=== PATIENT | male | born 1990 | race Caucasian/White ===

== ENCOUNTER 2021-03-21 17:43 | Emergency (ER) | payer MEDICAID, OTHER ==
[~2021-03-21] VITALS: Ht 180.3 cm; Wt 63.6 kg
[2021-03-21] MEDS ORDERED: ibuprofen tablet 400 MG TABLET PO ONE (18:20)
--- NOTE | 2021-03-22 09:59 | NUR ---
pt had taken his own motrin from home
[2021-03-22] MEDS ORDERED: propofol 10mg/ml 20ml vial IV ONE (10:05)
--- NOTE | 2021-03-22 10:30 | NUR ---
pt npo since 199 this am
--- NOTE | 2021-03-22 11:29 | NUR ---
1105 dr. ochoa at bedside. pt going to or.
[2021-03-22 12:12] LABS: ANION GAP 10 (8-16); BLOOD UREA NITROGEN 16 MG/DL (7-18); BUN/CREATININE RATIO 24.2 (5.4-32.0); CALCIUM 8.2 MG/DL (8.5-10.1); CHLORIDE 108 MMOL/L (99-107); CREATININE 0.66 MG/DL (0.60-1.10); GLUCOSE 99 MG/DL (70-104); POTASSIUM 4.2 MMOL/L (3.5-5.1); SODIUM 142 MMOL/L (135-145); TOTAL CARBON DIOXIDE 24.1 MMOL/L (24-32); eGFR > 90 ML/MIN
[2021-03-22 12:18] LABS: BASOPHILS % (AUTO) 0.3 % (0-1); EOSINOPHILS # (AUTO) 0.1 X10'3 (0-0.9); EOSINOPHILS % (AUTO) 1.2 % (0-6); HEMATOCRIT 38.9 % (42.0-52.0); HEMOGLOBIN 13.2 g/dl (14.0-17.9); LYMPHOCYTES # (AUTO) 1.2 X10'3 (1.1-4.8); LYMPHOCYTES % (AUTO) 11.6 % (21-51); MEAN CORPUSCULAR HEMOGLOBIN 29.3 PG (27.0-31.0); MEAN CORPUSCULAR VOLUME 86.2 FL (78-98); MONOCYTES % (AUTO) 9.5 % (2-12); NEUTROPHILS % (AUTO) 77.4 % (42-75); PLATELET COUNT 185 X10'3 (140-440); RED BLOOD COUNT 4.51 X10'6 (4.70-6.10); RED CELL DISTRIBUTION WIDTH 13.4 % (11.5-14.5); WHITE BLOOD COUNT 10.3 X10'3 (4.5-11.0)
[2021-03-22] MEDS ORDERED: cloNIDine hcl/PF 100mcg/ml inj ONE (13:12)
[2021-03-22] MEDS ORDERED: fentaNYL/PF 50MCG/1 ML 2ML syringe ONE (13:14)
[2021-03-22] MEDS ORDERED: propofol inj 20 ML IV ONE (13:14)
[2021-03-22] MEDS ORDERED: midazolam 1 mg/ML 2ml injection ONE (13:14)
[2021-03-22] MEDS ORDERED: ROPIVAcaine 0.5% (5mg/ml) 30ml vial ONE (13:17)
[2021-03-22] MEDS ORDERED: sevoflurane 250ml liquid IH ONE (13:18)
[2021-03-22] MEDS ORDERED: ceFAZolin 1000mg inj ONE ×2 (13:33→13:34)
[2021-03-22] MEDS ORDERED: morphine 2 MG/ML inj. syringe IV PRN (14:05)
[2021-03-22] MEDS ORDERED: ringers solution, lacted 1,000 ML IV SCH (14:05)
[2021-03-22] MEDS ORDERED: morphine 4 MG/ML inj SYRINge IV PRN (14:05)
[2021-03-22] MEDS ORDERED: meperidine/PF 25mg/ml syringe IV PRN ×3 (14:05)
[2021-03-22] MEDS ORDERED: proCHLORperazine 10 MG/2 ml inj IV PRN (14:05)
[2021-03-22] MEDS ORDERED: ondansetron/PF 4mg/2ml inj IV PRN (14:05)
[2021-03-22] MEDS ORDERED: vancomycin 1,000mg inj ONE (14:57)
[2021-03-22] MEDS ORDERED: bacitracin 15gm ointment TP ONE (15:14)
[2021-03-22 15:35] VITALS: BP 130/84
--- NOTE | 2021-03-22 15:35 | NUR ---
Received from OR via [facility], accompanied by Anesthesiologist BRET and report given by Anesthesiologist. PATIENT WAKING UP, NO S/S OF PAIN, V/S WNL, C AND M INTACT BILATERALLY, RIGHT ARM CASTED AND WRAPPED IN ER S/P FALL HAS 20G PIV IN PLACE, LEFT ARM SPLINTED AND WRAPPED-CDI, INTRACLAVICULAR BLOCK DONE TO LEFT-ARM IN SLING, C AND M INTACT +CAP REFILL, PT ABLE TO MOVE FINGERS BUT NO SENSATION, SCD ON, 20G TO LUE, RIGHT WRIST DRESSING CDI W/ SLING. ICE AND ELEVATED RUE.
[2021-03-22 15:40] VITALS: BP 134/90
[2021-03-22 15:50] VITALS: BP 137/85
[2021-03-22 16:00] VITALS: BP 129/90
[2021-03-22 16:10] VITALS: BP 132/86
[2021-03-22 16:20] VITALS: BP 135/87
--- NOTE | 2021-03-22 16:35 | NUR ---
PATIENT A&OX4, DENIES PAIN, V/S STABLE, SCD OFF, 20G TO LUE D/C, drsg to RIGHT AND LEFT ARMS-CDI, FINGERS PINK WARM, +CAP REFILL BILATERALLY, ABLE TO MOVE FINGERS, BLOCK TO LEFT ARM-PT EDUCATED ABOUT PROTECTING ARM UNTIL NUMBNESS WEARS OFF, ARM IN SLING CURRENTLY, ENCOURAGED TO KEEP ELEVATED AND USE ICE, GIVEN [facility] RX FOR PAIN, EXPLAINED D/C INSTRUCTIONS TO MOM-ALL QUESTIONS ANSWERED. PT TAKEN VIA W/C TO FAMILY VEHICLE WITH ALL BELONGINGS.
== END 2021-03-22 16:35 | disposition home or self-care (01) ==
LOC: ER 17:44 → EDBD 17:44 → ER 03-22 02:14
DX: S52.592A Other fractures of lower end of left radius, initial encounter for closed fracture (principal); Z20.822 Contact with and (suspected) exposure to COVID-19; S52.692A Other fracture of lower end of left ulna, initial encounter for closed fracture; S52.134A Nondisplaced fracture of neck of right radius, initial encounter for closed fracture; V00.841A Fall from standing electric scooter, initial encounter; Y93.55 Activity, bike riding; Y92.413 State road as the place of occurrence of the external cause; Y99.9 Unspecified external cause status
CPT/HCPCS: 25608; 36415; 73030; 73080; 73090; 73110; 80048; 85025; 87635; 99152; 99285; A6222; C1713; C9803; J0690; J0735; J2250; J2704; J3010; J3370; J7120; Z7506; Z7508; 25605; A4565; A4618; A6258; A6449; A7000; J2795